=== PATIENT | female | born 1955 | race Caucasian/White ===

== ENCOUNTER 2022-06-11 08:42 | Day surgery (SDC) | payer MEDICARE, OTHER ==
[~2022-06-11 08:42] MED LIST: Lactated Ringers 1,000 ML IV SCH; Lidocaine 1%/Sod Bicarbonate in NS 8.4% 1 ML Syringe IDERM PRN; Sodium Chloride 0.9% 10 ML Syringe FLUSH PRN; Sodium Chloride 0.9% 10 ML Syringe FLUSH SCH
[2022-06-11] MEDS ORDERED: Propofol 200 MG/20 ML SDV ONE (09:15)
[2022-06-11] MEDS ORDERED: fentaNYL 100 MCG/2 ML SDV ONE (09:15)
== END 2022-06-11 11:45 | disposition home or self-care (01) ==
LOC: JD.SDS 08:42
PROVIDERS: ATTEND Surgery
DX: K57.30 Diverticulosis of large intestine without perforation or abscess without bleeding (principal); K64.4 Residual hemorrhoidal skin tags; K64.8 Other hemorrhoids; I10 Essential (primary) hypertension; E78.5 Hyperlipidemia, unspecified; E03.9 Hypothyroidism, unspecified; K21.9 Gastro-esophageal reflux disease without esophagitis; G47.33 Obstructive sleep apnea (adult) (pediatric); E11.9 Type 2 diabetes mellitus without complications; Z79.890 Hormone replacement therapy; Z79.899 Other long term (current) drug therapy; Z79.2 Long term (current) use of antibiotics; Z79.82 Long term (current) use of aspirin; Z90.49 Acquired absence of other specified parts of digestive tract; Z98.890 Other specified postprocedural states
CPT/HCPCS: 45378; J2704; J3010; J7120; 00811

== ENCOUNTER 2025-02-15 20:58 | Emergency (ER) | payer MEDICARE, OTHER ==
[2025-02-15 21:51] LABS: APPEARANCE,URINE SLT CLOUDY (Clear); BILIRUBIN,URINE NEGATIVE (Negative); COLOR,URINE DARK YELLOW (Yellow); GLUCOSE,URINE NEGATIVE (Negative); KETONES,URINE NEGATIVE (Negative); LEUKOCYTE ESTERASE,URINE 1+ (Negative); NITRITE,URINE POSITIVE (Negative); OCCULT BLOOD,URINE 3+ (Negative); PH,URINE 5.5 (5.0-8.0); PROTEIN,URINE 3+ (Negative)
[2025-02-15 22:24] LABS: RBC,URINE 30-40 /hpf (0-5); WBC,URINE 50-75 /hpf (0-5)
[2025-02-15 22:25] LABS: BACTERIA,URINE MODERATE /hpf (FEW); MUCUS,URINE FEW /hpf (FEW)
[2025-02-15] MEDS: Phenazopyridine 95 MG Tab PO SCH (22:55)
[2025-02-15] MEDS: Levofloxacin 750 MG Tab PO SCH (23:46)
[2025-02-15] MEDS: traZODone 50 MG Tab PO ONE (23:50)
== END 2025-02-15 23:58 | disposition home or self-care (01) ==
LOC: JD.ED 20:58
DX: N39.0 Urinary tract infection, site not specified (principal); G47.09 Other insomnia; I10 Essential (primary) hypertension; K21.9 Gastro-esophageal reflux disease without esophagitis; Z90.710 Acquired absence of both cervix and uterus; Z79.899 Other long term (current) drug therapy; Z86.16 Personal history of COVID-19
CPT/HCPCS: 81001; 87086; 87088; 87186; 99283; 99284; A9270-GY